=== PATIENT | female | born 1935 | race Caucasian/White ===

== ENCOUNTER 2019-05-21 09:36 | Observation (INO) | payer MEDICARE ==
[~2019-05-21] VITALS: Ht 157.5 cm; Wt 67.6 kg
[2019-05-21] MEDS ORDERED: LEVO50TA5 PO (10:27)
[2019-05-21] MEDS ORDERED: POTA20TA89 PO (10:27)
[2019-05-21] MEDS ORDERED: DILT240C PO (10:27)
[2019-05-21] MEDS ORDERED: ACET500T76 PO (10:27)
[2019-05-21] MEDS ORDERED: ATOR20TA PO (10:27)
[2019-05-21] MEDS ORDERED: APIX5TAB PO (10:27)
[2019-05-21] MEDS ORDERED: MELA1TAB22 PO (10:27)
[2019-05-21] MEDS ORDERED: FURO-93 PO (10:27)
[2019-05-21] MEDS ORDERED: CARB1DRO EACHEYE (10:27)
[2019-05-21] MEDS ORDERED: METO-99 PO (10:27)
--- NOTE | 2019-05-21 11:25 | NUR ---
FIRST CONTACT WITH PT. REPORT OBTAINED FROM OMAR FINLEY. PT IS RESTING AND CALM. AT BEDSIDE. BLOOD CULTURES COLLECTED. PT DENIES PAIN. NAD.
[2019-05-21 11:37] LABS: BASOPHILS # (AUTO) 0.04 x10^3/uL (0-0.1); BASOPHILS % (AUTO) 1 % (0-1); EOSINOPHILS # (AUTO) 0.07 x10^3/uL (0-0.4); EOSINOPHILS % (AUTO) 1 % (1-7); LYMPHOCYTES # (AUTO) 2.04 x10^3/uL (1-3.4); LYMPHOCYTES % (AUTO) 26 % (22-44); MD NO; MEAN CORPUSCULAR HEMOGLOBIN 29.3 pg (27.0-34.8); MEAN CORPUSCULAR HGB CONC 32.1 g/dL (32.4-35.8); MEAN CORPUSCULAR VOLUME 91.3 fL (80-100); MEAN PLATELET VOLUME 7.9 fL (7.4-10.4); MONOCYTES # (AUTO) 0.69 x10^3/uL (0.2-0.8); MONOCYTES % (AUTO) 9 % (2-9); NEUTROPHILS % (AUTO) 63 % (42-75); PLATELET COUNT 235 x10^3/uL (130-400); RED BLOOD COUNT 4.64 x10^6/uL (3.82-5.3); RED CELL DISTRIBUTION WIDTH 14.3 % (9.6-15.2)
[2019-05-21 11:48] LABS: ALANINE AMINOTRANSFERASE 29 U/L (12-78); ANION GAP 10 mmol/L (5-15); CALCIUM 9.2 mg/dL (8.5-10.1); CHLORIDE 108 mmol/L (98-107); CREATININE 0.69 mg/dL (0.55-1.02)
[2019-05-21 11:49] LABS: INTERNATIONAL NORMALIZED RATIO 1.15 (0.93-1.1)
[2019-05-21 11:53] LABS: ALKALINE PHOSPHATASE 113 U/L (45-117); BILIRUBIN,TOTAL 1.6 mg/dL (0.2-1.0); TOTAL PROTEIN 7.3 g/dL (6.4-8.2); TROPONIN I < 0.015 ng/mL (0.000-0.045)
[2019-05-21 12:12] LABS: CULTURE INDICATED? YES; MICROSCOPIC AUTO
[2019-05-21] MEDS ORDERED: FUROSEMIDE 40 MG/4 ML IV ONE (12:30)
--- NOTE | 2019-05-21 12:52 | NUR ---
Patient is resting comfortably in bed. Vital Signs within normal limits.
[2019-05-21] MEDS ORDERED: CEPHALEXIN 500 MG CAPSULE PO ONE (13:23)
[2019-05-21] MEDS ORDERED: FUROSEMIDE 20 MG/2 ML ONE (13:23)
[2019-05-21] MEDS ORDERED: POLYETHYLENE GLYCOL 17 GM PACKET PO PRN (13:30)
[2019-05-21] MEDS ORDERED: ENALAPRILAT 1.25 MG/ML, 2ML IVPush PRN (13:30)
[2019-05-21] MEDS ORDERED: DOCUSATE 100 MG CAPSULE PO PRN (13:30)
[2019-05-21] MEDS ORDERED: ACETAMINOPHEN 325 MG TABLET PO PRN (13:30)
[2019-05-21] MEDS ORDERED: MELATONIN 5 MG TABLET PO PRN (13:30)
[2019-05-21] MEDS ORDERED: LABETALOL 5MG/ML, 20ML IVPush PRN (13:30)
[2019-05-21] MEDS ORDERED: ONDANSETRON 2MG/ML, 2ML IVPush PRN (13:30)
--- NOTE | 2019-05-21 13:37 | NUR ---
Patient is resting comfortably in bed. Vital Signs within normal limits.
[2019-05-21 13:54] LABS: TROPONIN I < 0.015 ng/mL (0.000-0.045)
[2019-05-21] MEDS ORDERED: PROMETHAZINE 25 MG/ML, 1ML IM PRN (14:00)
[2019-05-21] MEDS ORDERED: METOCLOPRAMIDE 5 MG/ML, 2ML IVPush PRN (14:00)
--- NOTE | 2019-05-21 14:00 | NUR ---
Patient Tranfers to room 489, Celine is RN Pt transferred in stable condition.
--- NOTE | 2019-05-21 14:44 | NUR ---
REPORT GIVEN TO MONA ON 489. PT INFORMED THAT SHE COULD EAT. POC DISCUSSED WITH PT AND FAMILY, THEY AGREE WITH POC AND ADMIT.
[2019-05-21 15:11] VITALS: BP 147/73
[2019-05-21 15:11] LABS: HEMOGLOBIN A1C 6.3 % (4.2-6.3)
[2019-05-21] MEDS: FUROSEMIDE 20 MG/2 ML IV SCH (17:43)
[2019-05-21 19:15] VITALS: BP 143/73
[2019-05-21 19:33] LABS: TROPONIN I < 0.015 ng/mL (0.000-0.045)
[2019-05-21 20:08] VITALS: BP 150/83
[2019-05-21] MEDS: POTASSIUM CHLORIDE 20 MEQ TAB.ER.PRT PO SCH (20:09)
[2019-05-21] MEDS: APIXABAN 5 MG TABLET PO SCH (20:09)
[2019-05-21] MEDS: CEPHALEXIN 500 MG CAPSULE PO SCH (20:10)
[2019-05-21] MEDS: FAMOTIDINE 20 MG TABLET PO SCH (20:12)
[2019-05-21] MEDS ORDERED: ATORVASTATIN 20 MG TABLET PO SCH (21:00)
[2019-05-21] MEDS ORDERED: METOPROLOL TARTRATE 100 MG TABLET PO SCH (21:00)
[2019-05-21] MEDS ORDERED: DILTIAZEM 240 MG CAP.ER.24H PO SCH (21:00)
[2019-05-22 02:46] VITALS: BP 125/77
[2019-05-22 06:18] LABS: BASOPHILS # (AUTO) 0.05 x10^3/uL (0-0.1); BASOPHILS % (AUTO) 1 % (0-1); EOSINOPHILS # (AUTO) 0.11 x10^3/uL (0-0.4); EOSINOPHILS % (AUTO) 2 % (1-7); LYMPHOCYTES # (AUTO) 2.09 x10^3/uL (1-3.4); LYMPHOCYTES % (AUTO) 31 % (22-44); MD NO; MEAN CORPUSCULAR HEMOGLOBIN 30.3 pg (27.0-34.8); MEAN CORPUSCULAR HGB CONC 32.9 g/dL (32.4-35.8); MEAN PLATELET VOLUME 8.5 fL (7.4-10.4); MONOCYTES # (AUTO) 0.73 x10^3/uL (0.2-0.8); MONOCYTES % (AUTO) 11 % (2-9); NEUTROPHILS # (AUTO) 3.83 x10^3/uL (1.8-6.8); NEUTROPHILS % (AUTO) 56 % (42-75); PLATELET COUNT 213 x10^3/uL (130-400); RED BLOOD COUNT 4.63 x10^6/uL (3.82-5.3); RED CELL DISTRIBUTION WIDTH 14.3 % (9.6-15.2)
[2019-05-22 06:24] LABS: ANION GAP 6 mmol/L (5-15); CALCIUM 9.4 mg/dL (8.5-10.1); CHLORIDE 109 mmol/L (98-107); CREATININE 0.69 mg/dL (0.55-1.02)
[2019-05-22 07:22] VITALS: BP 144/79
[2019-05-22] MEDS ORDERED: POTASSIUM CHLORIDE 20 MEQ in SODIUM CHLORIDE 0.9% 250 ML IV ONE (07:30)
[2019-05-22 07:55] LABS: ALBUMIN 3.6 g/dL (3.4-5.0); BILIRUBIN, DIRECT 0.3 mg/dL (0.1-0.2)
[2019-05-22 07:57] LABS: BILIRUBIN,INDIRECT 1.4 mg/dL (0.0-2.0); BILIRUBIN,TOTAL 1.7 mg/dL (0.2-1.0); TOTAL PROTEIN 6.8 g/dL (6.4-8.2)
[2019-05-22] MEDS: CEPHALEXIN 500 MG CAPSULE PO SCH (08:12)
[2019-05-22] MEDS: FAMOTIDINE 20 MG TABLET PO SCH (08:12)
[2019-05-22] MEDS: APIXABAN 5 MG TABLET PO SCH (08:12)
[2019-05-22] MEDS: FUROSEMIDE 20 MG/2 ML IV SCH ×2 (08:12→16:47)
[2019-05-22] MEDS: POTASSIUM CHLORIDE 20 MEQ TAB.ER.PRT PO SCH (08:12)
[2019-05-22] MEDS ORDERED: METOPROLOL TARTRATE 50 MG TABLET PO SCH (09:00)
[2019-05-22] MEDS ORDERED: LEVOTHYROXINE 50 MCG TABLET PO SCH (09:00)
[2019-05-22] MEDS ORDERED: CARBOXYMETHYLCELLULOSE SODIUM EACHEYE SCH (09:00)
--- NOTE | 2019-05-22 10:16 | NUR ---
Recommend regular/thin diet with adherence to the following: HOB at 90* or up to chair for meals Reflux precautions Remain sitting up up 30-45 minutes after meals Chew thoroughly Addendum: 05/22/19 at 1017 by Helena [email or web address] Amended: Links added.
[2019-05-22 12:52] VITALS: BP 119/63
[2019-05-22 14:15] LABS: ANION GAP 9 mmol/L (5-15); CALCIUM 8.8 mg/dL (8.5-10.1); CHLORIDE 110 mmol/L (98-107); CREATININE 0.83 mg/dL (0.55-1.02)
[2019-05-22] MEDS ORDERED: CEPH-376 PO (16:05)
== END 2019-05-22 17:06 | disposition home or self-care (01) ==
LOC: ED 12:20 → INTOOBSV 13:08 → EDIP 13:08 → 4EST 14:42 → DCLOUNGE 05-22 16:54
PROVIDERS: ADMIT Family Medicine; ATTEND Family Medicine
DX: R19.7 Diarrhea, unspecified (principal); I48.91 Unspecified atrial fibrillation; N39.0 Urinary tract infection, site not specified; I11.0 Hypertensive heart disease with heart failure; I50.9 Heart failure, unspecified; J90 Pleural effusion, not elsewhere classified; R06.00 Dyspnea, unspecified; R53.1 Weakness; R13.10 Dysphagia, unspecified; I25.10 Atherosclerotic heart disease of native coronary artery without angina pectoris; E03.9 Hypothyroidism, unspecified; E78.5 Hyperlipidemia, unspecified; R73.03 Prediabetes; G51.0 Bell's palsy; Z87.19 Personal history of other diseases of the digestive system; Z86.73 Personal history of transient ischemic attack (TIA), and cerebral infarction without residual deficits; Z88.0 Allergy status to penicillin; Z88.2 Allergy status to sulfonamides; Z79.899 Other long term (current) drug therapy; Z95.0 Presence of cardiac pacemaker; Z90.710 Acquired absence of both cervix and uterus; Z90.89 Acquired absence of other organs
CPT/HCPCS: 36415; 71045; 76700; 80048; 80053; 80076; 81001; 83036; 83605; 83690; 83735; 83880; 84100; 84145; 84484; 85025; 85610; 85730; 87040; 87086; 92610; 93005; 93306; 96361; 96374; 96376; 97161; 97165; 99284; G0378; J1940; J2550; J3480; J7050